=== PATIENT | female | born 1985 | race Caucasian/White ===

== ENCOUNTER 2016-04-14 16:06 | Emergency (ER) | payer SELFPAY ==
[2016-04-14] MEDS ORDERED: HYDROcodone/Acetaminophen 10/325 mg Tablet ONE (16:55)
[2016-04-14] MEDS ORDERED: Ibuprofen 800 MG TAB ONE (16:55)
--- NOTE | 2016-04-14 17:12 | ERRECORD ---
[facility] EMERGENCY RECORD HPI FOOT (16:58 JPIP) CHIEF COMPLAINT: Denies numbness, Patient presents for evaluation of pain, to the right foot, Patient presents for evaluation of swelling, to the right foot, Patient presents for evaluation of tenderness, to the right foot. HISTORIAN: History provided by patient. MECHANISM OF INJURY: Mechanism of injury: remote history of ankle sprain with intemitant pain since. LOCATION: Symptoms are localized, most severe to proximal plantar surface. QUALITY: Pain is dull in nature, described as aching. SEVERITY: Current severity of pain rated as 8/10. TIME COURSE: Gradual onset of symptoms, Date and time of onset was "months ago", Symptoms are worsening, are intermittent. ASSOCIATED WITH: No associated ankle pain, No associated coolness to touch, No associated distal neuro complaint, No associated erythema, No associated hip pain, No associated knee pain, No associated open wounds, Associated with pain on walking. EXACERBATED BY: Patient's condition exacerbated by walking, Patient's condition exacerbated by bearing weight, Patient's condition exacerbated by worse in the mornings. RELIEVED BY: Patient's condition relieved by nothing. ROS (16:59 JPIP) CONSTITUTIONAL: Historian denies chills, denies fever. CARDIOVASCULAR: Historian denies chest pain, denies dyspnea on exertion. RESPIRATORY: Historian denies cough, denies shortness of breath. MUSCULOSKELETAL: Historian reports arthralgias, reports myalgias. SKIN: Historian denies rash, denies skin changes, denies skin lesions. NOTES: All systems reviewed, negative except as described above. PAST MEDICAL HISTORY MEDICAL HISTORY: Asthma, HTN, Pinched Nerve in Lower Back, Ovarian Cyst. (16:17 KMOR) FEMALE SURGICAL HISTORY: Patient has no surgical history. (16:17 KMOR) PSYCHIATRIC HISTORY: Psychiatric history includes, anxiety. (16:17 KMOR) SOCIAL HISTORY: Patient denies alcohol use, Patient denies drug use, Patient currently uses tobacco, smokes cigarettes, daily, Patient smokes 1/2 packs per day. (16:17 KMOR) NOTES: Nursing records reviewed, Medication list reviewed. (17:04 JPIP) KNOWN ALLERGIES Sulfa (Sulfonamide Antibiotics) &a-1R&a+25V*p+0X*a1412B*c202B*c15G*c2P*p-0X&a-25V&a+1R Name: Selina Huntley : 1985 F30 MedRec: [id number] AcctNum: [id number] Prepared: WedApr 14, 2016 17:10 by Interface Page 1 of 3 pMD [facility] EMERGENCY RECORD CURRENT MEDICATIONS traZODone: TABLET : Strength - 50 mg : ORAL Patient Dose: 50 Oral once a day (in the evening). (16:19 KMOR) traMADol: TABLET : Strength - 50 mg : ORAL Patient Dose: 100 mg Oral 3 times a day. (16:20 KMOR) KlonoPIN: TABLET : Strength - 1 mg : ORAL Patient Dose: 1 mg Oral 3 times a day. (16:20 KMOR) VITAL SIGNS (16:16 KMOR) VITAL SIGNS: BP: 154/101, Pulse: 83, Resp: 18, Temp: 98.8 (Oral), Pain: 8, O2 sat: 99 on Room Air, Time: 04/14/2016 16:16. PHYSICAL EXAM (17:00 JPIP) CONSTITUTIONAL: Vital Signs Reviewed, Patient afebrile, Pulse normal, Blood pressure normal. EYES: Eye exam included findings of eyelids normal to inspection, Conjunctiva normal, Sclera normal, no periorbital ecchymosis, no periorbital edema, no periorbital erythema. RESPIRATORY CHEST: Respiratory exam included findings of no respiratory distress. LOWER EXTREMITY: Lower extremity exam included findings of inspection normal, no abrasions, no contusions, no deformity, no lacerations, capillary refill less than 2 seconds, no edema, no calf tenderness, Foot tenderness, right foot, plantar, heel, Very TTP at the Proximal plantar area. no discoloration no open lesions. No lesions noted, Foot tendon function normal, No tenderness to palpation, No tenderness on the medial malleolar region, No Tenderness on the lateral malleolar region. NEURO: Priti coma scale 15, Neuro exam findings include patient oriented to person, place and time. SKIN: Skin exam included findings of skin warm, dry, and normal in color. PSYCHIATRIC: Psychiatric exam included findings of patient oriented to person place and time, Normal affect. RADIOLOGYINTERPRETATION (16:47 JPIP) LOWER EXTREMITIES: Foot films, of the right foot show, no fracture, Other findings: +Achilles and plantar heel spurs. MICROCOMPUTER SUPPORT SPECIALIST: Preliminary review of x-rays by, ED Physician. MEDICATION ADMINISTRATION SUMMARY Drug Name: Dewey, Dose Ordered: 10 mg, Route: Oral, Status: Given, Time: 16:57 04/14/2016, &a-1R&a+25V*p+0X*p4998O*c202B*c15G*c2P*p-0X&a-25V&a+1R Name: Selina Huntley : 1985 F30 MedRec: [id number] AcctNum: [id number] Prepared: WedApr 14, 2016 17:10 by Interface Page 2 of 3 pMD [facility] EMERGENCY RECORD Drug Name: Motrin, Dose Ordered: 800 mg, Route: Oral, Status: Given, Time: 16:56 04/14/2016, Detailed record available in Medication Service section. PROBLEM LIST No recorded problems DIAGNOSIS (16:55 JPIP) FINAL: PRIMARY: plantar faciitis, ADDITIONAL: heel spurs. PRESCRIPTION (16:53 JPIP) diclofenac oral: TABLET, DELAYED RELEASE (ENTERIC COATED) : 75 mg : ORAL : Quantity: 1 Unit: tab(s) Route: ORAL Schedule: 2 times a day (with meals) Dispense: 30 May substitute. Refills: No Refills . NOTES: as needed for pain No refills. Tylenol-Codeine #3: TABLET : 300 mg-30 mg : ORAL : Quantity: 1-2 Unit: tab(s) Route: ORAL Schedule: every 6 hours PRN Dispense: 24 May substitute. Refills: No Refills . NOTES: No refills. DISPOSITION PATIENT: Disposition Type: Discharge, Disposition: *Discharge Home, Condition: Good. (16:55 IP) Patient left the department. (17:06 [facility]) Hidalgo: OO=RJ Russell, June JPIP=DO Zuluaga Joseph KMOR=TUCKER Dotson, Cristy &a-1R&a+25V*p+0X*j5924S*c202B*c15G*c2P*p-0X&a-25V&a+1R Name: Selina Huntley : 1985 F30 MedRec: [id number] AcctNum: [id number] Prepared: Jorge Apr 14, 2016 17:10 by Interface Page 3 of 3 pMD MTDD
--- NOTE | 2016-04-14 17:14 | PICIS ---
[facility] EMERGENCY RECORD TRIAGE (WedApr 14, 2016 16:14 KMOR) TRIAGE NOTES: Right foot pain after spraining ankle a few months ago, still having right heel pain and arch pain. (WedApr 14, 2016 16:14 KMOR) PATIENT: NAME: Selina Huntley, AGE: 30, GENDER: female, : Wed1985, TIME OF GREET: WedApr 14, 2016 16:07, PREFERRED LANGUAGE: Romanian, ETHNICITY: Not or , ECODE BILLING MAP: [facility], SSN: [id number], Zip Code: [address], KG WEIGHT: 95.25, , , PERSON ID: [id number], PAYMENT: S[employer] Self Pay, PCP: oot. (WedApr 14, 2016 16:14 KMOR) PHONE: . (16:14) COMPLAINT: Right foot pain. (WedApr 14, 2016 16:14 KMOR) ADMISSION: URGENCY: 4 Non Urgent, ADMISSION SOURCE: Home, TRANSPORT: CAR, BED: ER -02. (WedApr 14, 2016 16:14 KMOR) ASSESSMENT: Assessment: A&OX4. RR EVEN AND UNLABORED., Symptoms began greater than 1 week ago. (16:17 KMOR) PAIN: Patient complains of pain described as, aching, on a scale 0-10 patient rates pain as 8, Location RIGHT FOOT. (16:17 KMOR) IMMUNIZATIONS: Flu vaccine not up to date, Pneumococcal vaccine not up to date. (16:17 KMOR) SIRS SCORING: Heart Rate 55-109 (0), Temp range 96.8-101.1 (0), respiratory rate 12-24 (0), Mental Status altered: no (0), Infection or Suspected Infection: No. (16:17 KMOR) TRIAGE SCREENING: Patient denies suicidal ideation, Patient denies presence of domestic violence. (16:17 KMOR) LMP: Last menstrual period: 03/23/2016. (16:17 KMOR) PROVIDERS: TRIAGE NURSE: Cristy Dotson RN. (WedApr 14, 2016 16:14 KMOR) VITAL SIGNS: BP 154/101, Pulse 83, Resp 18, Temp 98.8, (Oral), Pain 8, O2 Sat 99, on Room Air, Time 04/14/2016 16:16. (16:16 KMOR) KNOWN ALLERGIES Sulfa (Sulfonamide Antibiotics) CURRENT MEDICATIONS traZODone: TABLET : Strength - 50 mg : ORAL Patient Dose: 50 Oral once a day (in the evening). (16:19 KMOR) traMADol: TABLET : Strength - 50 mg : ORAL Patient Dose: 100 mg Oral 3 times a day. (16:20 KMOR) KlonoPIN: TABLET : Strength - 1 mg : ORAL Patient Dose: 1 mg Oral 3 times a day. (16:20 KMOR) VITAL SIGNS (16:16 KMOR) VITAL SIGNS: BP: 154/101, Pulse: 83, Resp: 18, Temp: 98.8 (Oral), &a-1R&a+25V*p+0X*z4451B*c202B*c15G*c2P*p-0X&a-25V&a+1R Name: Selina Huntley : 1985 F30 MedRec: [id number] AcctNum: [id number] Prepared: WedApr 14, 2016 17:10 by Interface Page 1 of 6 pMD [facility] EMERGENCY RECORD Pain: 8, O2 sat: 99 on Room Air, Time: 04/14/2016 16:16. NURSING ASSESSMENT: EXTREMITY LOWER (16:21 KMOR) CONSTITUTIONAL: Patient arrives ambulatory, Gait steady, History obtained from patient, Patient appears comfortable, Patient cooperative, Patient alert, Oriented to person, place and time, Skin warm, Skin dry, Skin normal in color, Mucous membranes pink, Mucous membranes moist, Patient is well-groomed, Patient complains of Right foot pain, Right foot pain after rolling ankle a few month ago. Pain in arch of foot, worse with walking. PAIN: aching pain, to the right foot, on a scale 0-10 patient rates pain as 8. LEFT LOWER EXTREMITY: Left lower extremity assessment findings include capillary refill less than 2 seconds, Skin color normal, Skin temperature warm, Distal sensation intact, Muscle tone normal, muscle strength 5, no edema present, dorsalis pedis pulse is +3. RIGHT LOWER EXTREMITY: Right lower extremity assessment findings include capillary refill less than 2 seconds, Skin color normal, Skin temperature warm, Distal sensation intact, Muscle tone normal, muscle strength 5, no edema present, posterior tibia pulse is +3, dorsalis pedis pulse is +3, Inspection findings include no contusion, Inspection findings include no redness, Inspection findings include no swelling. NOTES: Patient tolerated procedure well. NURSING PROCEDURE: DISCHARGE NOTE (17:00 AHOO) DISCHARGE: Patient discharged to home, ambulating without assistance, family driving, accompanied by //partner, Summary of Care printed/ provided, Discharge instructions given to patient, Prescriptions given and instructions on side effects given, Above person(s) verbalized understanding of discharge instructions and follow-up care, Patient treated and evaluated by physician. ORDER DETAILS Order Name: XR Foot Rt 3 View STANDARD, Status: Active, Time: 16:27 04/14/2016, User: CHUCKIE, - Ordered for: DO Zuluaga Joseph, - Entered by: DO Zuluaga Joseph - WedApr 14, 2016 16:27, - Quantity: 1. MEDICATION ADMINISTRATION SUMMARY Drug Name: Lincoln, Dose Ordered: 10 mg, Route: Oral, Status: Given, Time: 16:57 04/14/2016, Drug Name: Motrin, Dose Ordered: 800 mg, Route: Oral, Status: Given, Time: 16:56 04/14/2016, Detailed record available in Medication Service section. MEDICATION SERVICE &a-1R&a+25V*p+0X*h6458Z*c202B*c15G*c2P*p-0X&a-25V&a+1R Name: Selina Huntley : 1985 F30 MedRec: [id number] AcctNum: [id number] Prepared: WedApr 14, 2016 17:10 by Interface Page 2 of 6 pMD [facility] EMERGENCY RECORD Motrin: Order: Motrin (ibuprofen) - Dose: 800 mg : Oral Schedule: Now Ordered by: Chris Zuluaga DO Entered by: Chris Zuluaga DO WedApr 14, 2016 16:52 , Acknowledged by: Amanda Russell LVN WedApr 14, 2016 16:54 Documented as given by: Amanda Russell LVN WedApr 14, 2016 16:56 Patient, Medication, Dose, Route and Time verified prior to administration. Amount given: 800mg, Correct patient, time, route, dose and medication confirmed prior to administration, Patient advised of actions and side-effects prior to administration, Allergies confirmed and medications reviewed prior to administration, Patient in position of comfort, Side rails up, Cart in lowest position, Family at bedside. Lincoln: Order: Lincoln (hydrocodone bitartrate/acetaminophen) - Dose: 10 mg : Oral Schedule: Now Ordered by: Chris Zuluaga DO Entered by: Chris Zuluaga DO betty Apr 14, 2016 16:52 , Acknowledged by: Amanda Russell LVN betty Apr 14, 2016 16:54 Documented as given by: Amanda Russell LVN betty Apr 14, 2016 16:57 Patient, Medication, Dose, Route and Time verified prior to administration. Amount wasted: 10mg, Correct patient, time, route, dose and medication confirmed prior to administration, Patient advised of actions and side-effects prior to administration, Allergies confirmed and medications reviewed prior to administration, Patient in position of comfort, Side rails up, Cart in lowest position, Family at bedside. HPI FOOT (16:58 JP) CHIEF COMPLAINT: Denies numbness, Patient presents for evaluation of pain, to the right foot, Patient presents for evaluation of swelling, to the right foot, Patient presents for evaluation of tenderness, to the right foot. HISTORIAN: History provided by patient. MECHANISM OF INJURY: Mechanism of injury: remote history of ankle sprain with intemitant pain since. LOCATION: Symptoms are localized, most severe to proximal plantar surface. QUALITY: Pain is dull in nature, described as aching. SEVERITY: Current severity of pain rated as 8/10. TIME COURSE: Gradual onset of symptoms, Date and time of onset was "months ago", Symptoms are worsening, are intermittent. ASSOCIATED WITH: No associated ankle pain, No associated coolness to touch, No associated distal neuro complaint, No associated erythema, No associated hip pain, No associated knee pain, No associated open wounds, Associated with pain on walking. EXACERBATED BY: Patient's &a-1R&a+25V*p+0X*n9736I*c202B*c15G*c2P*p-0X&a-25V&a+1R Name: Selina Huntley : 1985 F30 MedRec: [id number] AcctNum: [id number] Prepared: Jorge Apr 14, 2016 17:10 by Interface Page 3 of 6 pMD [facility] EMERGENCY RECORD condition exacerbated by walking, Patient's condition exacerbated by bearing weight, Patient's condition exacerbated by worse in the mornings. RELIEVED BY: Patient's condition relieved by nothing. ROS (16:59 JPIP) CONSTITUTIONAL: Historian denies chills, denies fever. CARDIOVASCULAR: Historian denies chest pain, denies dyspnea on exertion. RESPIRATORY: Historian denies cough, denies shortness of breath. MUSCULOSKELETAL: Historian reports arthralgias, reports myalgias. SKIN: Historian denies rash, denies skin changes, denies skin lesions. NOTES: All systems reviewed, negative except as described above. PAST MEDICAL HISTORY MEDICAL HISTORY: Asthma, HTN, Pinched Nerve in Lower Back, Ovarian Cyst. (16:17 KMOR) FEMALE SURGICAL HISTORY: Patient has no surgical history. (16:17 KMOR) PSYCHIATRIC HISTORY: Psychiatric history includes, anxiety. (16:17 KMOR) SOCIAL HISTORY: Patient denies alcohol use, Patient denies drug use, Patient currently uses tobacco, smokes cigarettes, daily, Patient smokes 1/2 packs per day. (16:17 KMOR) NOTES: Nursing records reviewed, Medication list reviewed. (17:04 JPIP) PHYSICAL EXAM (17:00 JPIP) CONSTITUTIONAL: Vital Signs Reviewed, Patient afebrile, Pulse normal, Blood pressure normal. EYES: Eye exam included findings of eyelids normal to inspection, Conjunctiva normal, Sclera normal, no periorbital ecchymosis, no periorbital edema, no periorbital erythema. RESPIRATORY CHEST: Respiratory exam included findings of no respiratory distress. LOWER EXTREMITY: Lower extremity exam included findings of inspection normal, no abrasions, no contusions, no deformity, no lacerations, capillary refill less than 2 seconds, no edema, no calf tenderness, Foot tenderness, right foot, plantar, heel, Very TTP at the Proximal plantar area. no discoloration no open lesions. No lesions noted, Foot tendon function normal, No tenderness to palpation, No tenderness on the medial malleolar region, No Tenderness on the lateral malleolar region. NEURO: Maiden coma scale 15, Neuro exam findings include patient oriented to person, place and time. SKIN: Skin exam included findings of skin warm, dry, and normal in color. &a-1R&a+25V*p+0X*v8211Y*c202B*c15G*c2P*p-0X&a-25V&a+1R Name: Selina Huntley : 1985 F30 MedRec: [id number] AcctNum: [id number] Prepared: Jorge Apr 14, 2016 17:10 by Interface Page 4 of 6 pMD [facility] EMERGENCY RECORD PSYCHIATRIC: Psychiatric exam included findings of patient oriented to person place and time, Normal affect. EVENTS TRANSFER: Triage to Emergency Emergency Room -02. (16:14 KMOR) Removed from Emergency Emergency Room -02. (17:06 AHOO) RADIOLOGYINTERPRETATION (16:47 JPIP) LOWER EXTREMITIES: Foot films, of the right foot show, no fracture, Other findings: +Achilles and plantar heel spurs. GARBAGE COLLECTOR SUPERVISOR: Preliminary review of x-rays by, ED Physician. O2SAT INTERPRETATION (16:24 JPIP) O2SAT: Single pulse oximetry, Oxygen saturation 99%, on room air, Oxygen saturation interpretation: Normal, No intervention required. PROBLEM LIST No recorded problems DIAGNOSIS (16:55 JPIP) FINAL: PRIMARY: plantar faciitis, ADDITIONAL: heel spurs. DISPOSITION PATIENT: Disposition Type: Discharge, Disposition: *Discharge Home, Condition: Good. (16:55 JPIP) Patient left the department. (17:06 AHOO) INSTRUCTION (16:54 JPIP) DISCHARGE: PLANTAR FASCIITIS, HEEL SPUR. SPECIAL: Recommend using a plantar fascia brace at night. Follow up with Primary Care Physician within 72 hours Do not take motrin/ibuprofen/alleve/naprosyn while taking the diclofenac Return to the Emergency Department for increased symptoms problems or concerns. PRESCRIPTION (16:53 JPIP) diclofenac oral: TABLET, DELAYED RELEASE (ENTERIC COATED) : 75 mg : ORAL : Quantity: 1 Unit: tab(s) Route: ORAL Schedule: 2 times a day (with meals) Dispense: 30 May substitute. Refills: No Refills . NOTES: as needed for pain No refills. Tylenol-Codeine #3: TABLET : 300 mg-30 mg : ORAL : Quantity: 1-2 Unit: tab(s) Route: ORAL Schedule: every 6 hours PRN Dispense: 24 May substitute. Refills: No Refills . NOTES: No refills. &a-1R&a+25V*p+0X*a6782K*c202B*c15G*c2P*p-0X&a-25V&a+1R Name: Selina Huntley : 1985 [facility] MedRec: [id number] AcctNum: [id number] Prepared: WedApr 14, 2016 17:10 by Interface Page 5 of 6 pMD [facility] EMERGENCY RECORD IMAGING *DISCHARGE INSTRUCTIONS RECEIPT: Image captured from scanner. (17:04 [facility]) *SUPPLY CHARGE SHEET: Image captured from scanner. (17:05 [facility]) Hidalgo: AHOO=RJ RussellJune JPIP=DO Zuluaga Joseph KMOR=TUCKER Dotson, Cristy &a-1R&a+25V*p+0X*d9012L*c202B*c15G*c2P*p-0X&a-25V&a+1R Name: Selina Huntley : 1985 F2 MedRec: [id number] AcctNum: [id number] Prepared: WedApr 14, 2016 17:10 by Interface Page 6 of 6 pMD MTDD
--- NOTE | 2016-04-14 21:04 | RAD ---
RIGHT FOOT THREE VIEWS 04/14/16 No acute fracture was seen. There may have been old trauma to the proximal fourth metatarsal, but if so, it appears very remote. A very large calcaneal spur is present. There is also a large area of o ssification at the insertion of the Achilles tendon. IMPRESSION: Chronic changes, but no acute findings. POS: HOME
== END 2016-04-14 17:00 | disposition home or self-care (01) ==
LOC: BURERS 16:06
DX: M72.2 Plantar fascial fibromatosis (principal); M77.31 Calcaneal spur, right foot; F41.9 Anxiety disorder, unspecified; F17.210 Nicotine dependence, cigarettes, uncomplicated; J45.909 Unspecified asthma, uncomplicated; I10 Essential (primary) hypertension
CPT/HCPCS: 99283

== ENCOUNTER 2016-11-29 11:51 | Emergency (ER) | payer SELFPAY ==
[2016-11-29] MEDS ORDERED: HYDROcodone/Acetaminophen 10/325 mg Tablet ONE (12:09)
== END 2016-11-29 12:13 | disposition home or self-care (01) ==
LOC: BURERS 11:51
DX: K02.9 Dental caries, unspecified (principal); J45.909 Unspecified asthma, uncomplicated; F17.210 Nicotine dependence, cigarettes, uncomplicated; M06.9 Rheumatoid arthritis, unspecified; R73.03 Prediabetes
CPT/HCPCS: 99282

== ENCOUNTER 2016-12-01 01:52 | Emergency (ER) | payer SELFPAY ==
[2016-12-01] MEDS ORDERED: AMOXicillin 250 MG CAP ONE (02:35)
== END 2016-12-01 02:45 | disposition home or self-care (01) ==
LOC: BURERS 01:52
DX: K04.7 Periapical abscess without sinus (principal); K02.9 Dental caries, unspecified; J45.909 Unspecified asthma, uncomplicated; F17.210 Nicotine dependence, cigarettes, uncomplicated; M06.9 Rheumatoid arthritis, unspecified
CPT/HCPCS: 64400

== ENCOUNTER 2017-05-03 17:43 | Emergency (ER) | payer SELFPAY | END 2017-05-03 17:54 | disposition home or self-care (01) | LOC: BURERS 17:43 | DX: K03.81 Cracked tooth (principal); K02.9 Dental caries, unspecified; J45.909 Unspecified asthma, uncomplicated; F17.210 Nicotine dependence, cigarettes, uncomplicated | CPT/HCPCS: 99282 ==

== ENCOUNTER 2022-01-10 14:23 | Emergency (ER) | payer SELFPAY ==
[2022-01-10] MEDS ORDERED: Cyclobenzaprine 10 MG TAB ONE (14:53)
[2022-01-10] MEDS ORDERED: HYDROcodone/Acetaminophen 5/325 mg Tablet ONE (14:53)
[2022-01-10] MEDS ORDERED: predniSONE 20 MG TAB ONE (14:53)
[2022-01-10] MEDS ORDERED: Ketorolac Tromethamine 60 MG/2 ML VIAL ONE (14:54)
== END 2022-01-10 15:15 | disposition home or self-care (01) ==
LOC: BURERS 14:23
DX: S33.5XXA Sprain of ligaments of lumbar spine, initial encounter (principal); S39.012A Strain of muscle, fascia and tendon of lower back, initial encounter; I10 Essential (primary) hypertension; F17.290 Nicotine dependence, other tobacco product, uncomplicated; Z79.899 Other long term (current) drug therapy; X58.XXXA Exposure to other specified factors, initial encounter
CPT/HCPCS: 96372; 99283; J1885; J7512